=== PATIENT | female | born 1990 | race Caucasian/White ===

== ENCOUNTER 2017-03-01 09:07 | Day surgery (SDC) | payer OTHER ==
[~2017-03-01] VITALS: Ht 165.1 cm; Wt 64.5 kg
[2017-03-01] VITALS (11 sets, daily range): BP systolic 127–136; BP diastolic 61–85; PULSE 72–100; RESP 13–17; O2SAT 93–100
[2017-03-01] MEDS: Lactated Ringer's 1,000 ML IV SCH ×2 (07:58→11:04)
[~2017-03-01 09:07] MED LIST: ACET325T51 PO; CeFAZolin Inj 2 GM in IV Premix 1 EACH IV SCH; LACT1CAP65 PO; MIRENA IUD VAGINAL
[2017-03-01] MEDS ORDERED: Ondansetron 2 mg/mL 2 mL Inj ONE (09:08)
[2017-03-01] MEDS ORDERED: Propofol 10,000 mCg/mL 20 mL Inj ONE (09:08)
[2017-03-01] MEDS ORDERED: Dexamethasone 4 mg/mL Inj ONE (09:08)
[2017-03-01] MEDS ORDERED: fentaNYL-PF 50 mCg/mL 2 mL Inj ONE (09:08)
[2017-03-01] MEDS ORDERED: Ropivacaine-PF 0.5% 30 mL Inj ONE (09:08)
[2017-03-01] MEDS ORDERED: Lactated Ringer's 500 ML IV PRN (10:56)
[2017-03-01] MEDS ORDERED: Lactated Ringer's 1,000 ML IV SCH (10:56)
--- NOTE | 2017-03-01 10:56 | PCM.HPANE ---
Patient Data Date of Service: March 01, 2017 ([id number]) Surgeon Admitting Provider: Attending Provider:Jose F May MD Primary Care Physician:Nikos Other Provider:Brian Alston Anesthesia Reason for Visit Left Acl Tear Ht/WT & BMI Height (Feet): 5 Height (Inches): 5 Weight (Kilograms): 64.5 Body Mass Index 23.00 Allergies Coded Allergies: No Known Allergies (Unverified , 02/23/17) Past Anesthesia History Anesthesia History: Denies:: Fam Anesthesia Reaction, Fam Malignant Hypertherm Diabetes History Hx Diabetes?: No MRSA MRSA: No Medications Home Meds Incl Beta Sulaiman: No Reported Medications Acetaminophen 325 Mg [id number] Mg PO Q6H PRN For Pain Ref 0 02/23/17 Lactobacillus Acidophilus (Probiotic)1 Each Capsule1 Each PO DAILY 02/23/17 [Mirena Iud] No Conflict Check Vaginal 20MCG/24H 02/23/17 History History of ENT Problems?: No HEENT History: Denies:: Abnormal Airway Denture Type: None Teeth Condition: Within Normal Limits Hx of Heart Problems?: No Cardiovascular History: Denies:: Heart Murmur Hypertension Hx of Respiratory Problem?: No Respiratory History: Denies:: Use of C-PAP Machine Hx Neurologic Problems?: No Hx of GI Problems?: No Hx of Problems?: No Female Hx: Denies:: Currently Skin History: Denies:: History Skin Disorders? Pressure Ulcers Hx Musculoskeletal Problems?: Yes Musculoskeletal History: Positive for:: Musculoskeletal Trauma (LT LT ACL TEAR =CURRENT PROBLEM) Hx of Psycho/Social Problems?: No Hx Surgeries?: No Hx Any Other Health Problems?: No Other History: Denies:: Cancer Endocrine Disease Hospitalization Thyroid Disease Hx Diabetes: No Stop/Bang S-Snoring: Do You Snore Loudly: No T-Tired: feel tired, fatigued: Yes O-Obsered: Observed not breath: No P-Blood Pressure: treated: No B- Body Mass Index > 35 kg/m2: No A- Age over 50: No N- Neck Large Circumference: No G- Gender Male: No OLGA LIDIA Total Score: 1 OLGA LIDIA Risk Assessment: Low Risk, <3 Yes Risk Assessment Category Category 1A: Patient has history of documented sleep apnea, and HAS NOT received any narcotic, sedative or anesthesia administration during this stay. Category 1B: Patient has history of documented sleep apnea, and HAS received any narcotic , sedative or anesthesia administration during this stay Category 2: Patient has SUSPECTED Obstructive Sleep Apnea, and HAS received any narcotic , sedative or anesthesia administration during this stay. Category 3: Patient has SUSPECTED Obstructive Sleep Apnea and HAS NOT received narcotic, sedative or anesthesia administration during this stay. Category 4: Outpatient in Procedural Areas with known sleep apnea or who screen positive for High Risk via the STOP/BANG questionnaire. Exam Exam Vital Signs Vital Signs Date Time Temp Pulse Resp B/P Pulse Ox O2 Delivery O2 Flow Rate FiO2 03/01/17 09:41 36.5 72 16 127/72 100 Room Air General Appearance: Alert, Oriented X3, Cooperative HEENT/AIRWAY: MP 1 Lungs: Clear to Auscultation Heart: Exam Unremarkable Meds/Labs/Diagnostics Admission Meds Current Medications Lactated Ringer's (Lr) 1,000 ml @ 120 mls/hr Q8H20M IV Last administered on t 07:58; Start 03/01/17 at 05:00; Stop 03/01/17 at 13:19 Plan Impression Patient chart reviewed, patient interviewed and anesthestic plan with risks, benefits, and alternatives discussed, and informed consent obtained. NPO per Anesth. Guidelines: Yes Anesthetic Plan: GA, Regional Block (femoral SS) Bene/Risks/Altern/Consents: Yes HP Complete Prior to Induction: Yes Pepito Rousseau MD March 01, 2017 10:56
[2017-03-01] MEDS ORDERED: Bacitracin 50,000 unit Inj ONE (10:57)
[2017-03-01] MEDS ORDERED: Phenylephrine 10,000 mCg/mL Inj IVPUSH PRN (11:00)
[2017-03-01] MEDS ORDERED: Dexamethasone 4 mg/mL Inj IVPUSH PRN (11:00)
[2017-03-01] MEDS ORDERED: Ondansetron 2 mg/mL 2 mL Inj IVPUSH PRN (11:00)
[2017-03-01] MEDS ORDERED: MetoCLOpramide 5 mg/mL 2 mL Inj IVPUSH PRN (11:00)
[2017-03-01] MEDS ORDERED: EPHEDrine Sulfate 50 mg/mL Inj IVPUSH PRN (11:00)
[2017-03-01] MEDS ORDERED: HYDROmorphone 1 mg/mL Inj IVPUSH PRN (11:00)
[2017-03-01] MEDS ORDERED: fentaNYL-PF 50 mCg/mL 2 mL Inj IVPUSH PRN (11:00)
[2017-03-01] MEDS ORDERED: Ropivacaine-PF 0.5% 30 mL Inj INJ ONE (11:52)
[2017-03-01] MEDS ORDERED: Bacitracin 50,000 unit Inj IRRIGATION ONE (12:01)
[2017-03-01] MEDS ORDERED: HYDROcodone-APAP 5-325 mg Tablet PO PRN (13:25)
[2017-03-01] MEDS ORDERED: Ketorolac 15 mg/mL Inj IVPUSH ONE (13:25)
--- NOTE | 2017-03-01 13:30 | PCM.ORTHOP ---
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 Without the qualified operations and intelligence assistant being present, it would have extended the operative procedure and made the procedure technically more difficult to perform. INDICATIONS: The patient is a Jessica Matthews who is a 26 year old patient with a prolonged history of left knee giving way. The patient has had continued episodes of instability. The patient has restored their range of motion and is now brought to the operating room for ACL reconstruction, possible partial medial and lateral meniscectomy versus medial and lateral meniscal repair, chondroplasty and debridement. The risks, benefits, and alternatives of surgery were discussed with the patient. The risks included but were not limited to infection, bleeding, damage to vessels and nerves, loss of motion, continued pain, re-tear of the meniscus, deep venous thrombosis, and complications due to anesthesia including nerve injury, myocardial infarction, stroke, , etc. The patient stated understanding of the nature of the surgical procedure and gave written and verbal consent to proceed. PROCEDURE: The patient was brought to the operating room and placed supine on the operating room table. General anesthesia was induced and a fascia iliacus block was placed. The left lower extremity was examined under anesthesia. Range of motion was 0 degrees of hyperextension to 135 degrees of flexion. There was no varus or valgus or posterolateral instability. The patient had no instability to varus or valgus stress at 0 or 30 degrees. The patient had a 2+ Mariza and drawer with a positive pivot shift. The left lower extremity was then prepped and draped in the usual fashion. A tourniquet was placed proximally on the thigh over a bias stockinette. A standard anterolateral parapatellar stab wound was created. The knee joint was entered with a blunt-tipped obturator, followed by the 30-degree video arthroscope. An anteromedial portal was established under arthroscopic control. A routine arthroscopic survey was performed. The suprapatellar pouch was unremarkable. The undersurface of the patella was well-preserved. The patella appeared to track centrally within the trochlear groove. The medial and lateral gutters were inspected and there was no loose body seen. There was a lateral hypertrophied plica which was debrided with the shaver. The popliteal hiatus was entered and was unremarkable. The lateral compartment was entered. The articular surfaces of the lateral femoral condyle was largely well maintained. There was no chondromalacia adjacent to the notch. There was no chondromalacia along the central aspect of the weight bearing lateral tibial plateau. The lateral meniscus was intact and stable to probing. The intercondylar notch was visualized. The anterior cruciate ligament was torn from it's femoral origin. There was an empty lateral wall. Posteromedially there was no loose body seen. The posterior cruciate ligament was visualized and appeared intact. The medial compartment was entered. The articular surfaces of the medial femoral condyle and medial tibial plateau were visualized. There was no chondromalacia noted on the medial femoral condyle, and no chondromalacia noted on the medial tibial plateau. The medial meniscus was visualized and a small radial tear was debrided with a biter and a shaver along the posterior horn/ body junction. Attention was turned to reconstruction of the anterior cruciate ligament. Following exsanguination with an Esmarch bandage the tourniquet was inflated to 250 mm of mercury. A small longitudinal incision opposite the tibial tubercle, midway between the tubercle and the the posterior edge of the tibia was made. Careful palpation of the pes anserinus was performed and the saphenous nerve was identified and protected. An incision was made directly over and in line with the gracilis tendon, the tendon sheath was opened and adhesions and fibrous extensions that attach to the sheath were released. The semitendinosis and gracilis tendons were harvested proximally with the appropriately sized tendon stripper. The residual muscle was removed, measured and placed in a moistened sponge, but not submerged in saline. The paratenon surrounding the semitendinosus was preserved. The graft measured a size 6 and the decision was made to augment the graft with an allograft with the autograft positioned on the outer edge. Using a motorized shaver a notchplasty was performed, exposing the lateral wall and roof of the notch, identifying the over -the-top position. The stump of the anterior cruciate ligament was debrided. An Arthrex guide was placed intra-articularly between the tibial spines in line with the anterior horn of the lateral meniscus. A Yolis wire was then inserted into the knee through a 2 cm incision made over the proximal medial tibia. The incision was deepened through the subcutaneous tissue with subperiosteal dissection achieved. Bleeding points were coagulated with the Bovie electrocautery. ,The graft measured a tight 8 mm graft on the femoral side and 8 mm graft on the tibial side. Tibial drilling was then carried out first with a 5 mm followed by a 8 mm cylindrical reamer with the guide set at 55 degrees. The Beath pin was drilled out the femoral cortex and skin. The femoral tunnel was then created,with an Arthrex flipcutter. Depth-gauging confirmed a tunnel length of 45 mm. An Arthrex EndoButton was selected. The graft was inserted intra-articularly and the EndoButton was deployed. The graft was cycled for 17 cycles with 25 pounds of force to pre-load the graft. Tibial fixation was carried out using a 8-10 PEEK Intra-Fix in 10 degrees of flexion with a posterior drawer. At the completion of surgery the patient had a firm stable Mariza. The patient had a 0 firm Mariza and a negative pivot shift. There was no evidence for any roof or lateral wall impingement. The tourniquet was deflated at [default value] minutes. The knee was irrigated with two liters of lactated Ringer's solution. Excess fluid was drained. The tibial wounds were then copiously irrigated with bacitracin solution and closed in layers with #0, #2-0 and #3-0 Vicryl. The skin was reapproximated with #4- 0 Monocryl. The knee was injected with 20 cc of 0.5% plain ropivacaine and 4 mg of Duramorph. A dry sterile dressing was applied, followed by a bulky bandage and JAQUELIN stocking. A postoperative TROM brace was applied locked in full extension. The patient was awakened in the Operating Room and transported to the Recovery Room in satisfactory condition. The patient appeared to tolerate the procedure well. At the completion of surgery the patient had soft compartments, palpable pulses, and brisk capillary refill. There were no complications noted. Please keep dressing clean dry and intact. Do not remove dressing until follow- up in clinic. If the dressing become soaked, you may remove the outer gauze and placed Band-Aids on the wounds. You may weight-bear as tolerated with the brace on at all times. Do Not Bend Your Knee. You may place a pillow under your heel and NOT your knee. You will follow up in clinic in 10-14 days for suture removal, and placement of new Steri-Strips. You will follow-up with me in clinic, and we will start physical therapy. You will follow-up with me every 6 weeks while you progress in your rehab and will be released once cleared by PT around 9-12 months. Please see me prior to full release. Please keep the affected extremity elevated when possible. You will take antibiotics 4 times daily for 3 days. You may use ice and/or heat as needed for comfort. ( preferably ice during the first 48-72 hours)Please feel free to call with any further questions, comments, and/or concerns. Grafts, Implants: Implants-See Implant Record Complications There were no periprocedural complications identified. Condition Stable Anesthetic Administered: GA Catheters: None Output, Estimated Blood Loss: 5 Blood Admin during surgery: No Surgical Cast or Splint: None, Knee Immobilizer Surgical Specimen Removed: No Specimen sent to Pathology: No copies to: Jose F May MD, Christopher L MD March 01, 2017 13:30
--- NOTE | 2017-03-01 13:33 | PCM.ANEP1 ---
Post Anesthesia Phase 1 PACU Phase 1 Assessment Date of Service: March 01, 2017 (1055) Vital Signs 96%, 10, 103, 134/64, 36.8 Vital Signs Date Time Temp Pulse Resp B/P Pulse Ox O2 Delivery O2 Flow Rate FiO2 03/01/17 09:41 36.5 72 16 127/72 100 Room Air Anesthetic Administered: GA Level of Alertness: Awake, talking MOREJON's with Equal Strength: Yes Pain: Yes Nausea or Vomiting: No Cardiovascular Function and Hy: Yes Oxygen Delivery: Room Air Lungs: Clear to Auscultation Summary block appears to be working. pt quite confused in recovery Complications: Yes Follow up Care: No Pepito Rousseau MD March 01, 2017 13:32
[2017-03-01] MEDS ORDERED: Nalbuphine 10 mg/mL Inj IV PRN (13:35)
== END 2017-03-01 23:59 | disposition home or self-care (01) ==
LOC: SAS 09:07
PROVIDERS: ATTEND Orthopaedic Surgery
DX: S83.512A Sprain of anterior cruciate ligament of left knee, initial encounter (principal); S83.242A Other tear of medial meniscus, current injury, left knee, initial encounter; X50.0XXA Overexertion from strenuous movement or load, initial encounter; Y93.23 Activity, snow (alpine) (downhill) skiing, snowboarding, sledding, tobogganing and snow tubing; Y92.9 Unspecified place or not applicable
CPT/HCPCS: 29881; 29888; 76942; C1713; C1762; J0690; J1100; J1170; J1200; J1885; J2250; J2270; J2405; J2765; J2795; J3010; J7120